=== PATIENT | female | born 1965 | race Caucasian/White ===

== ENCOUNTER 2016-05-26 22:02 | Inpatient (IN) | payer OTHER ==
[~2016-05-26] VITALS: Ht 162.6 cm; Wt 98.0 kg
[~2016-05-26 22:02] MED LIST: NICODERM C1 PATCH .3 TRANSDERM; PRILOSEC20 MG PO; ZOLOFT50 MG PO
[2016-05-26 22:39] LABS: BASOPHILS 0.3 % (0.0-2.0); EOSINOPHILS 2.5 % (0-7); HEMATOCRIT 37.4 % (36.0-48.0); HEMOGLOBIN 12.5 g/dL (12-16); IMMATURE GRANULOCYTES 0.9 % (0-5); LYMPHOCYTES 39.6 % (15-50); MCH 29.4 pg (26.0-34.0); MCHC 33.4 g/dL (31.0-37.0); MEAN PLATELET VOLUME 10.8 fL (7.4-10.4); MONOCYTES 6.3 % (2-11); NEUTROPHILS 50.4 % (40-80); PLATELET COUNT 277 10x3/uL (130-400); RBC 4.25 10x6/uL (4.00-5.40); RDW 13.7 % (11.5-14.5); WBC 11.2 10x3/uL (4.8-10.8)
[2016-05-26 22:48] LABS: HCG SERUM NEGATIVE (NEGATIVE)
[2016-05-26 22:53] LABS: UDS - AMPHET NEGATIVE QUAL (NEGATIVE); UDS - BARB NEGATIVE QUAL (NEGATIVE); UDS - BENZO POSITIVE QUAL (NEGATIVE); UDS - COCAINE NEGATIVE QUAL (NEGATIVE); UDS - METH NEGATIVE QUAL (NEGATIVE); UDS - OPIATE NEGATIVE QUAL (NEGATIVE); UDS - PCP NEGATIVE QUAL (NEGATIVE); UDS - THC NEGATIVE QUAL (NEGATIVE)
[2016-05-26 23:03] LABS: ALBUMIN 3.4 g/dL (3.4-5.0); ALKALINE PHOSPHATASE 98 U/L (46-116); ALT (SGPT) 34 U/L (10-68); BILIRUBIN - TOTAL 0.12 mg/dL (0.2-1.3); CALC OSMOLALITY 284 mosm/kg (275-300); CALCIUM 8.6 mg/dL (8.5-10.1); CARBON DIOXIDE 22.3 mmol/L (21.0-32.0); CHLORIDE - SERUM 107 mmol/L (98-107); CREATININE - SERUM 0.5 mg/dL (0.6-1.3); GLUCOSE 120 mg/dL (74-106); POTASSIUM - SERUM 3.2 mmol/L (3.5-5.1); PROTEIN - SERUM 6.6 g/dL (6.4-8.2); SODIUM 142 mmol/L (136-145); THYROID STIMULATING HORMONE 2.09 uIU/mL (0.36-3.74); UREA NITROGEN 15 mg/dL (7-18); eGFR NON AFRICAN AMERICAN > 90 mL/min (90-120)
[2016-05-27] VITALS (23 sets, daily range): BP systolic 107–164; BP diastolic 77–107; Ht 162.6 cm; Wt 98.0 kg
--- NOTE | 2016-05-27 02:00 | NUR ---
RECEIVED PATIENT FROM ER. PATIENT CAME OVER VIA BED. ON VENT AT THIS TIME. PATIENT RESPONDS TO PAIN BUT WILL NOT FOLLOW COMMANDS. PROPOFL GOING FOR SEDATION. PUPILS ARE 2MM AND SLUGGISH. SEE ASSESSMENT FOR MORE DETAILS. VSS.
--- NOTE | 2016-05-27 05:00 | NUR ---
NO ACUTE CHANGES WITH PATIENT. TITRATED DIPRIVAN DOWN NOW THAT PATIENT IS SETTLED IN. VSS. CALLED AND UPDATE GIVEN.
--- NOTE | 2016-05-27 06:10 | NUR ---
FAMILY AT BEDSIDE, UPDATE GIVEN.
--- NOTE | 2016-05-27 07:00 | NUR ---
ASSESSMENT COMPLETE PER FLOWSHEET. VSS.
[2016-05-27 11:28] LABS: BASOPHILS 0.2 % (0.0-2.0); EOSINOPHILS 1.5 % (0-7); HEMOGLOBIN 13.8 g/dL (12-16); IMMATURE GRANULOCYTES 0.7 % (0-5); LYMPHOCYTES 15.8 % (15-50); MCH 29.2 pg (26.0-34.0); MCHC 32.9 g/dL (31.0-37.0); MCV 88.8 fL (80.0-100.0); MONOCYTES 5.6 % (2-11); NEUTROPHILS 76.2 % (40-80); PLATELET COUNT 276 10x3/uL (130-400); RBC 4.73 10x6/uL (4.00-5.40); RDW 14.1 % (11.5-14.5)
[2016-05-27 11:32] LABS: WBC 15.1 10x3/uL (4.8-10.8)
--- NOTE | 2016-05-27 13:45 | NUR ---
POISON CONTROL NOTIFIED PER KESHA GUPTA.
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
--- NOTE | 2016-05-27 21:00 | NUR ---
AT BEDSIDE, UPDATE GIVEN.
--- NOTE | 2016-05-27 23:00 | NUR ---
REASSESSMENT COMPLETE. NO ACUTE CHANGES.
[2016-05-28] VITALS (25 sets, daily range): BP systolic 97–174; BP diastolic 47–107
--- NOTE | 2016-05-28 01:00 | NUR ---
BED BATH GIVEN, LINENS CHANGED. PATIENT TOLERATED WELL.
--- NOTE | 2016-05-28 03:00 | NUR ---
REASSESSMENT COMPLETE, NO CHANGES AT THIS TIME.
--- NOTE | 2016-05-28 05:00 | NUR ---
VOLUNTEER SERVICES SPECIALIST NOTIFIED ME ABOUT UNABLE TO DRAW LAB AFTER SEVERAL ATTEMPTS. I ATTEMPTED SEVERAL TIMES WELL. ANOTHER VOLUNTEER SERVICES SPECIALIST WAS CALLED TO ATTEMPT.
[2016-05-28 06:25] LABS: BASOPHILS 0.2 % (0.0-2.0); EOSINOPHILS 1.5 % (0-7); HEMATOCRIT 37.2 % (36.0-48.0); HEMOGLOBIN 12.3 g/dL (12-16); IMMATURE GRANULOCYTES 0.4 % (0-5); LYMPHOCYTES 18.5 % (15-50); MCH 28.7 pg (26.0-34.0); MCHC 33.1 g/dL (31.0-37.0); MEAN PLATELET VOLUME 10.7 fL (7.4-10.4); MONOCYTES 5.3 % (2-11); NEUTROPHILS 74.1 % (40-80); PLATELET COUNT 247 10x3/uL (130-400); RBC 4.29 10x6/uL (4.00-5.40); RDW 14.3 % (11.5-14.5); WBC 12.1 10x3/uL (4.8-10.8)
[2016-05-28 06:27] LABS: MCV 86.7 fL (80.0-100.0)
[2016-05-28 06:48] LABS: CALC OSMOLALITY 281 mosm/kg (275-300); CALCIUM 7.9 mg/dL (8.5-10.1); CARBON DIOXIDE 23.7 mmol/L (21.0-32.0); CHLORIDE - SERUM 108 mmol/L (98-107); CREATININE - SERUM 0.5 mg/dL (0.6-1.3); GLUCOSE 115 mg/dL (74-106); MAGNESIUM - SERUM 1.8 mg/dL (1.8-2.4); PHOSPHOROUS 3.8 mg/dL (2.5-4.9); POTASSIUM - SERUM 3.6 mmol/L (3.5-5.1); SODIUM 142 mmol/L (136-145); eGFR NON AFRICAN AMERICAN > 90 mL/min (90-120)
[2016-05-28 06:50] LABS: UREA NITROGEN 8 mg/dL (7-18)
--- NOTE | 2016-05-28 10:00 | NUR ---
PT EXTUBATED PER ORDER WITH R.T. RESTRAINTS DC'D. O2 APPLIED AT 2L NC.
--- NOTE | 2016-05-28 19:30 | NUR ---
ASSESSMENT COMPLETE. S1S2. RR SHALLOW; CRACKLES BILATERALLY IN UPPER LOBES; DIMINISHED BILATERALLY IN LOWER LOBES. AAO. PERRLA. RADIAL AND PEDAL PULSES PALPATED. VSS.
--- NOTE | 2016-05-28 21:00 | NUR ---
PT FAMILY SIGNIFICANT OTHER CALLED TO CHECK ON PT. UPDATE GIVEN.
--- NOTE | 2016-05-28 23:20 | NUR ---
REASSESSMENT COMPELTE. NO CHANGES FROM PREVIOUS ASSESSMENT. WILL CONTINUE TO MONITOR.
[2016-05-29] VITALS (15 sets, daily range): BP systolic 110–142; BP diastolic 59–95
--- NOTE | 2016-05-29 01:26 | NUR ---
PT RESTING, EYES CLOSED. NO DISTRESS NOTED. VSS. CALL LIGHT IN REACH. WILL CONTINUE TO MONITOR.
--- NOTE | 2016-05-29 02:20 | NUR ---
ASSISTED PT TO BEDPAN; MEDIUM AMOUNT OF SOFT SEMI FORMED STOOL.
--- NOTE | 2016-05-29 03:00 | NUR ---
REASSESSMENT COMPELTE. REDDENED SCLERA IN RIGHT EYE.
[2016-05-29 04:38] LABS: BASOPHILS 0.1 % (0.0-2.0); EOSINOPHILS 0.1 % (0-7); HEMATOCRIT 35.7 % (36.0-48.0); HEMOGLOBIN 11.8 g/dL (12-16); IMMATURE GRANULOCYTES 0.6 % (0-5); LYMPHOCYTES 8.9 % (15-50); MCH 28.8 pg (26.0-34.0); MCHC 33.1 g/dL (31.0-37.0); MCV 87.1 fL (80.0-100.0); MEAN PLATELET VOLUME 10.9 fL (7.4-10.4); MONOCYTES 5.3 % (2-11); PLATELET COUNT 245 10x3/uL (130-400)
[2016-05-29 04:56] LABS: CALC OSMOLALITY 283 mosm/kg (275-300); CALCIUM 9.1 mg/dL (8.5-10.1); CHLORIDE - SERUM 106 mmol/L (98-107); CREATININE - SERUM 0.6 mg/dL (0.6-1.3); GLUCOSE 145 mg/dL (74-106); PHOSPHOROUS 3.5 mg/dL (2.5-4.9); POTASSIUM - SERUM 3.5 mmol/L (3.5-5.1); SODIUM 142 mmol/L (136-145); UREA NITROGEN 7 mg/dL (7-18); eGFR NON AFRICAN AMERICAN > 90 mL/min (90-120)
[2016-05-29] MEDS ORDERED: NEURONTIN600 MG PO (08:53)
[2016-05-29] MEDS ORDERED: CELEXA40 MG PO (08:54)
--- NOTE | 2016-05-29 09:00 | NUR ---
PT UP IN CHAIR AT BEDSIDE. FAMILY AT BEDSIDE. PT EATING BREAKFAST
--- NOTE | 2016-05-29 10:20 | NUR ---
PT WAS BACK IN ROOM. LET HIM KNOW VISITATION HAS BEEN OVER FOR A WHILE AND ASKED HIM TO PLEASE STEP OUT UNTIL NEXT VISITATION. PT BECAME TEARFUL. CRIES VERY EASILY. DID THIS EARLIER WHEN FIRST ARRIVED AND HAD BROUGHT OTHER FAMILY MEMBERS, AND THEN AGAIN WHEN HE TOLD HER HE HAD REPORTED HER BEING IN THE HOSPITAL TO HER EMPLOYER.
--- NOTE | 2016-05-29 12:45 | NUR ---
PT WITH VISITORS AT BEDSIDE. CHEESEBURGER PROVIDED REQUESTED FROM KITCHEN. SITTING UP IN CHAIR AT BEDSIDE AT THIS TIME.
--- NOTE | 2016-05-29 12:57 | NUR ---
PT REQUESTING THAT HER DAUGHTERS DAYANNA AND SOLA NOT BE ALLOWED TO COME IN TO ICU. THEY HAVE BEEN CAUSING PROBLEMS SINCE LAST NIGHT AND TRIED TO [facility]EL[facility] MR LEGER IN THE PARKING LOT.
--- NOTE | 2016-05-29 13:45 | NUR ---
CASE MANAGEMENT STEVEN IN ROOM SPEAKING WITH PT.
--- NOTE | 2016-05-29 14:02 | NUR ---
PT ASKED TO GET UP TO WALK. NEW LINENS PLACED ON BED.
--- NOTE | 2016-05-29 14:35 | NUR ---
Is the patient Alert and Oriented? Yes 0 * How many steps to enter\exit or inside your home? 4 0 * PCP DR CHEN - [place], [place] 0 * [facility] * Preadmission Environment Home with Family 0 * ADLs Independent 0 * Equipment None 0 * List name and contact numbers for known caregivers / representatives who currently or will assist patient after discharge: ARLET LEGER- - [phone] ValeryLuigi SILVESTRE- FATHER- [phone] 0 * Community resources currently utilized None 0 * Please name any agencies selected above. N/A 0 * Additional services required to return to the preadmission environment? Yes 0 * Can the patient safely return to the preadmission environment? Yes 0 * Has this patient been hospitalized within the prior 30 days at any hospital? No 0
--- NOTE | 2016-05-29 15:15 | NUR ---
LATE ENTRY 1300 CM MET W/ PATIENT AT THE BEDSIDE. SHE WAS OOB TO THE CHAIR. ALERT AND ORIENTED. SHE WANTS TO GO TO OUTPATIENT THERAPY BUT UNDERSTANDS WHY THE PSYCHIATRIST THINKS SHE SHOULD GO INPATIENT. SHE IS WILLING TO GO INPATIENT. PATIENT LIVES IN [place], [place]. SHE CONSENTS TO REFERRAL TO [facility] IN [place]. TC TO [place]. SPOKE WITH INTAKE NURSE, CHANEL. FAXED REFERRAL PER REQUEST. AWAIT RESPONSE. PATIENT LIVES IN [place] W/ HER . SHE HAS 2 DAUGHTERS AGES 23 YRS AND 26 YRS OF AGE. SHE ALSO HAS A 5YR OLD GIRL "MY 'S DAUGHTER" LIVING W/ HER. SHE LIVES IN A PRIVATE HOME. THERE ARE 4 STEPS TO ENTER THE FRONT ENTRANCE. PT'S OLDER CHILDREN LIVE IN [place]. SHE STATES SHE HAS BEEN SOBER FOR ALMOST A YEAR. SHE DID NOT HAVE ANY COUNSELING OUPATIENT OR ATTEND ANY MEETINGS. SHE STATES "I DID IT WITH GOD". SHE STATES SHE HAS HAD A NUMBER OF STRESSORS PRIMARILY FAMILY RELATED. SHE LOST HER SISTER WHO WAS HER CONFIDANT THIS PAST . PCP DR CHEN- [facility]- [facility] ON [place] [address] PATIENT STATES SHE MADE SOME POOR DECISIONS. WILL ACCEPT PSYCH HELP.
--- NOTE | 2016-05-29 15:47 | NUR ---
SPOKE WITH ADRIANE AT [facility]. IS GOING TO ACCEPT PATIENT. SHE WILL BE ASSIGNED TO ROOM 208 BED 2. PT BEING ADMITTED TO DR DELONG
--- NOTE | 2016-05-29 16:06 | NUR ---
RECEIVED CALLBACK FROM [facility], WITH ACCEPTANCE TO A BEHAVIORAL HEALTH BED. ACCEPTING MD IS DR MACIAS. BED ASSIGNMENT RM 208 BED-2. COBRA FORM HAS BEEN INITIATED. NURSNG TRANSFERE FORM STARTED. CHART COPY AVAILABLE. PRIMARY NURSE WILL CALL PT'S TO NOTIFY OF ACCEPTANCE AND TRANSFER. PLAN AMBULANCE TRANSFER. SPOKE W/ DANIEL, THE CRUSHER MACHINE OPERATOR, REGARDING ACCEPTANCE.
--- NOTE | 2016-05-29 16:16 | NUR ---
NOTIFIED PT HAS ORDERS FOR TRANSFER
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
--- NOTE | 2016-05-29 17:54 | NUR ---
PT DISCHARGED BY AMBULANCE TO [facility] IN [place]. PT WAS OUT IN WAITING AREA CAUSING A DISTURBANCE, CALLING IN ICU THREATENING AND SAYING WE FORCED MRS LEGER AGAINST HER WILL AND THAT HE HAS TO GIVE PERMISSION FOR HER TO GO. SECURITY AND [employer] HVAC R INSTRUCTOR WERE CALLED. NURSING STAFF AT [facility] NOTIFIED OF PT LEAVING AND DISTURBANCE.
--- NOTE | 2016-05-29 18:55 | NUR ---
Patient's came just prior to 1800 visiting hour w/ young child. Voicing he did not want his transferred to [facility]. Demanding to see the physician. Pacing back and forth in the waiting room. Telephoned into the ICU 6-7 times. Nursing pilot plant supervisor and security notified. They spoke with the . Pls reference primary nurse's notes. Patient discharged to [facility] in [place] via ambulance.
--- NOTE | 2016-07-31 15:15 | DS ---
PATIENT:MITZI LEGER :67 MEDICAL RECORD: [id number] DISCHARGE SUMMARY ADMISSION DATE: 05/27/16 DISCHARGE DATE: 05/29/16 DATE OF ADMISSION: 05/27/2016 DATE OF DISCHARGE: 05/29/2016 DISCHARGE DIAGNOSES: 1. Benzodiazepine overdose. 2. Acute respiratory failure. 3. Suicidal ideations. 4. Hypokalemia, resolved. 5. Leukocytosis. 6. Gastroesophageal reflux disease. 7. Depression. CONSULTS: 1. Dr. Avendano. 2. Dr. Ragland. IMAGING: Chest x-ray, which shows no acute cardiopulmonary disease shows an endotracheal tube in place. HOSPITAL COURSE: The full H&P is listed elsewhere in the chart for this 50-year-old patient who was brought in to the Emergency Department after she had taken 60 Xanax, unknown milligramage. Supposedly, the patient's daughter with 4 children had moved back in with ____ [place] and was too much stress apparently on the patient and she intentionally took an overdose of pills which caused acute hypoxic respiratory failure requiring the patient to be emergently intubated for airway protection. She was taken into the ICU and pulmonology consult was obtained. She did DVT and GI prophylaxis. She was successfully weaned off of mechanical ventilation. Dr. Ragland was consulted. It was felt that the patient was majorly depressed and she was transferred to inpatient psychiatric care. TRANSINT:[id number] Voice Confirmation ID: [id number] DOCUMENT ID: [id number] Dictated By: MIKE ESQUIVEL I have interviewed/examined the above patient and agree with these documented findings. NELLIE MARSH MD at 1515 at 0811 CC: [id number] DICTATION DATE: 07/27/16 0905 MATHEMATICS ACADEMIC CHAIR: 07/28/16 0034 DIS IN 05/29/16 [facility] [address] [place] [address]
== END 2016-05-29 18:11 | disposition short-term general hospital (02) | DRG 917 ==
LOC: D.ER 22:02 → D.ICU 05-27 01:00
PROVIDERS: Family Medicine; ADMIT Family Medicine
PROC: 0BH17EZ Insertion of Endotracheal Airway into Trachea, Via Natural or Artificial Opening (ICD-10-PCS; principal; 2016-05-27)
PROC: 5A1945Z Respiratory Ventilation, 24-96 Consecutive Hours (ICD-10-PCS; 2016-05-27)
DX: T42.4X2A Poisoning by benzodiazepines, intentional self-harm, initial encounter (principal); J96.02 Acute respiratory failure with hypercapnia; J44.1 Chronic obstructive pulmonary disease with (acute) exacerbation; F32.9 Major depressive disorder, single episode, unspecified; F10.10 Alcohol abuse, uncomplicated; E87.6 Hypokalemia; K21.9 Gastro-esophageal reflux disease without esophagitis; Z72.0 Tobacco use

== ENCOUNTER 2017-02-21 02:53 | Emergency (ER) | payer SELFPAY ==
[2016-05-27 09:51] VITALS: BMI 37.1
[~2017-02-21 02:53] MED LIST changes: +CELEXA40 MG PO; +NEURONTIN600 MG PO
[2017-02-21 03:30] LABS: APPEARANCE CLEAR (CLEAR); BILIRUBIN NEGATIVE (NEGATIVE); COLOR YELLOW (YELLOW); GLUCOSE NEGATIVE (NEGATIVE); KETONE NEGATIVE (NEGATIVE); NITRITE NEGATIVE (NEGATIVE); PROTEIN NEGATIVE (NEGATIVE); SPECIFIC GRAVITY 1.005 (1.005-1.020); UROBILINOGEN NORMAL (NORMAL)
== END 2017-02-21 03:38 | disposition home or self-care (01) ==
LOC: D.ER 02:53
PROVIDERS: Emergency Medicine
DX: M54.5 Low back pain (principal); N81.10 Cystocele, unspecified; F17.200 Nicotine dependence, unspecified, uncomplicated